=== PATIENT | male | born 1990 | race Caucasian/White ===

== ENCOUNTER 2020-07-19 10:38 | Emergency (ER) | payer BC, OTHER ==
[~2020-07-19] VITALS: Ht 175.3 cm; Wt 106.6 kg
[2020-07-19] MEDS ORDERED: LIDOCAINE 5% (LIDODERM) PATCH TD ONE (11:30)
[2020-07-19] MEDS ORDERED: CYCLOBENZAPRINE 10MG TABLET PO ONE (11:30)
[2020-07-19] MEDS ORDERED: KETOROLAC 30 MG/ML 1ML VIAL IM ONE (11:30)
--- NOTE | 2020-07-19 12:31 | REPVR ---
PROCEDURE INFORMATION: Exam: CT Lumbar Spine Without Contrast Exam date and time: 07/19/2020 12:11 PM Age: 30 years old Clinical indication: Low back pain; Additional info: Low back pain radiating to left thigh TECHNIQUE: Imaging protocol: Computed tomography images of the lumbar spine without contrast. Radiation optimization: All CT scans at this facility use at least one of these dose optimization techniques: automated exposure control; mA and/or kV adjustment per patient size (includes targeted exams where dose is matched to clinical indication); or iterative reconstruction. COMPARISON: No relevant prior studies available. FINDINGS: Vertebrae: No acute fracture. Normal alignment. Discs/Spinal canal/Neural foramina: There is a calcified disc herniation at L4/5 that causes spinal canal stenosis. Soft tissues: Unremarkable. IMPRESSION: There is a calcified disc herniation at L4/5 that causes spinal canal stenosis. Full evaluation of the intervertebral discs and intraspinal contents is limited with CT imaging. Clinical findings will determine the need for further evaluation with MRI imaging. Electronically signed by: Zachariah Márquez On 07/19/2020 12:31:39 PM
[2020-07-19] MEDS ORDERED: PRED20TA PO (13:21)
[2020-07-19] MEDS ORDERED: LIDO5DIS41 TD (13:21)
[2020-07-19] MEDS ORDERED: CYCL5TAB PO (13:21)
[2020-07-19] MEDS ORDERED: predniSONE 20 MG TAB PO ONE (13:30)
[2020-07-19 13:32] VITALS: BP 157/90
[2020-07-19] MEDS ORDERED: **NOTE PATIENT COMMENT** MISC XX SCH (21:00)
--- NOTE | 2020-07-20 12:30 | ED PDOC ---
Post-Departure Follow-Up dr rogers faxed formal report of ct ls spine for fu Kate Macdonald MD Jul 20, 2020 12:30
== END 2020-07-19 13:36 | disposition home or self-care (01) ==
LOC: M ED 10:38
DX: M51.27 Other intervertebral disc displacement, lumbosacral region (principal); M54.17 Radiculopathy, lumbosacral region; M48.07 Spinal stenosis, lumbosacral region; F17.200 Nicotine dependence, unspecified, uncomplicated
CPT/HCPCS: 72131; 81001; 96372; 99284; J1885